=== PATIENT | female | born 1960 | race Caucasian/White ===

== ENCOUNTER 2021-12-10 08:54 | Emergency (ER) | payer BC ==
[~2021-12-10] VITALS: Ht 154.9 cm; Wt 68.0 kg
[2021-12-10 09:20] VITALS: BP 123/73
--- NOTE | 2021-12-10 10:03 | NUR ---
Patient ambulated to bed 9.
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
[2021-12-10] MEDS ORDERED: IBUP-2213 PO (11:11)
--- NOTE | 2021-12-10 11:33 | NUR ---
Patient discharged with v/s stable. Written and verbal after care instructions ABOUT LACERACARE AND TISSUE ADHESIVE WOUND CARE given and explained. Patient alert, oriented and verbalized understanding of instructions. Ambulatory with steady gait. All questions addressed prior to discharge. ID band removed. Patient advised to follow up with PMD. Rx of MOTRIN given. Patient educated on indication of medication including possible reaction and side effects. Opportunity to ask questions provided and answered.
== END 2021-12-10 11:33 | disposition home or self-care (01) ==
LOC: MED 08:54
DX: S61.211A Laceration without foreign body of left index finger without damage to nail, initial encounter (principal); Z79.899 Other long term (current) drug therapy; W26.0XXA Contact with knife, initial encounter; Y93.89 Activity, other specified; Y92.89 Other specified places as the place of occurrence of the external cause; Y99.8 Other external cause status
CPT/HCPCS: 12001; 73130; 90471; 90715; 99283